=== PATIENT | female | born 1985 | race Caucasian/White ===

== ENCOUNTER 2016-06-27 15:45 | Inpatient (IN) ==
[2016-06-27] MEDS ORDERED: STADOL IV PRN ×2 (15:54)
[2016-06-27] MEDS ORDERED: LR 500 ML IV ONE (15:54)
[2016-06-27] MEDS: LR 1,000 ML IV SCH (17:05)
[2016-06-27] MEDS: CYTOTEC PO SCH ×2 (17:15→21:12)
[2016-06-27 17:43] LABS: MANUAL DIFF NEEDED? NO
[2016-06-27 17:44] LABS: BASO% 0.2 % (0.0-0.8); EOS# 0.06 X1000 (0.0-0.7); EOS% 0.6 % (0.0-10.0); HEMOGLOBIN 13.1 g/dL (12.0-16.0); IMM GRAN# 0.03 X1000 (0.0-0.04); IMM GRAN% 0.3 % (0.0-0.5); LYMPH# 1.64 X1000 (1.2-3.4); LYMPH% 16.6 % (20.5-51.1); MCH 32.3 PG (27-31); MCHC 35.4 g/dL (33-37); MCV 91.4 FL (81-99); MONO# 0.62 X1000 (0.11-0.59); MONO% 6.3 % (1.7-9.3); MPV 9.4 FL (7.4-10.4); PLT 273 X1000 (130-400); RBC 4.05 XMIL (4.2-5.4)
[2016-06-27 18:40] LABS: URINE SOURCE VOIDED
[2016-06-27 18:48] LABS: BILIRUBIN URINE NEGATIVE (NEGATIVE); BLOOD URINE NEGATIVE (NEGATIVE); CLARITY CLEAR (CLEAR); COLOR YELLOW; GLUCOSE URINE NEGATIVE (NEGATIVE); LEUKOCYTES URINE TRACE (NEGATIVE); NITRITE URINE NEGATIVE (NEGATIVE); PROTEIN URINE NEGATIVE (NEGATIVE); UROBILINOGEN URINE NORMAL
[2016-06-27] MEDS ORDERED: DEMEROL IV PRN (21:39)
[2016-06-27] MEDS ORDERED: SODIUM CHLORIDE 0.9% INJ PRN (21:39)
[2016-06-27] MEDS ORDERED: PHENERGAN IV PRN (21:39)
[2016-06-28] MEDS: AMBIEN PO PRN ×2 (00:44→22:59)
[2016-06-28] MEDS: CYTOTEC PO SCH ×4 (01:20→18:02)
[2016-06-28] MEDS: LR 1,000 ML IV SCH ×2 (01:21→15:14)
[2016-06-28] MEDS ORDERED: CYTOTEC VAG ONE ×3 (11:15→21:15)
[2016-06-28] MEDS ORDERED: PEPCID PO PRN (13:57)
[2016-06-28] MEDS ORDERED: TYLENOL PO PRN (13:57)
[2016-06-28] MEDS ORDERED: PEPCID IV PRN (13:57)
[2016-06-28] MEDS ORDERED: REGLAN PO ONE (13:57)
[2016-06-28] MEDS ORDERED: PITOCIN 30 UNITS/LR 30 UNITS/500 ML IV.SOLN IV SCH (13:57)
[2016-06-28] MEDS ORDERED: KEFZOL 1 GM/D5W 1 GM/50 ML IVPB IV PRN (13:57)
[2016-06-28] MEDS ORDERED: ZOFRAN IV PRN (13:57)
[2016-06-28] MEDS ORDERED: LR 1,000 ML IV SCH (13:57)
[2016-06-28] MEDS ORDERED: SODIUM CHLORIDE 0.9% INJ SCH (14:00)
[2016-06-29] MEDS ORDERED: BOOSTRIX VACCINE IM ONE (08:34)
[2016-06-29] MEDS ORDERED: HYDROXYZINE PO PRN (08:34)
[2016-06-29] MEDS ORDERED: AMBIEN PO PRN (08:34)
[2016-06-29] MEDS ORDERED: NORCO-10 PO PRN (08:34)
[2016-06-29] MEDS ORDERED: M-M-R II VACCINE SUBQ ONE (08:34)
[2016-06-29] MEDS ORDERED: HYDROXYZINE IM PRN (08:34)
[2016-06-29] MEDS ORDERED: MOTRIN PO PRN (08:34)
[2016-06-29] MEDS ORDERED: PERI MEDS (DERMOPLAST/NUPERCAINAL/TUCKS) MISC PRN (08:34)
[2016-06-29] MEDS ORDERED: NORCO-5 PO PRN (08:34)
[2016-06-29] MEDS ORDERED: PERCOCET-5 PO PRN (08:40)
[2016-06-29] MEDS ORDERED: PERCOCET-10 PO PRN (08:41)
[2016-06-29] MEDS ORDERED: MINERAL OIL TOP PRN (08:42)
[2016-06-29] MEDS ORDERED: PITOCIN IM PRN (08:42)
[2016-06-29] MEDS ORDERED: CYTOTEC PO PRN (08:43)
[2016-06-29] MEDS ORDERED: BENADRYL IV PRN (08:44)
[2016-06-29] MEDS ORDERED: BENADRYL PO PRN (08:44)
--- NOTE | 2016-06-29 10:22 | OPERATIVE NOTE ---
PROCEDURE DATE: 06/29/2016 DATE OF DELIVERY: 06/29/2016. DELIVERING PHYSICIAN: Dr. Antelmo Falcon. TYPE OF DELIVERY: Spontaneous vaginal delivery. ANESTHESIA: IV sedation. FINDINGS: Intact placenta and fetus were delivered. The fetus showed no gross abnormalities. SUMMARY: Rebecca Ayala is a 30-year-old, 3, para 2-0-0-2, at approximately 17 weeks gestation when she was noted to have an intrauterine demise. Her had been uncomplicated. Her blood type is A positive. Antibody screen negative. Hepatitis B surface antigen, HIV were all negative, as was RPR. She was admitted by Dr. Claudio on night and begun on oral Cytotec. We began vaginal Cytotec yesterday afternoon. She had spontaneous rupture of membranes approximately an hour and a half before delivery. When I saw her there was a large amount of blood clots. We had her push, and the placenta and infant delivered spontaneously. There were no genital tears. Blood loss approximately 300 mL. The patient remained in the LDR recovering without difficulty. cc: MD Antelmo Hernandez MD
[2016-06-29 13:15] VITALS: BP 114/54
[2016-06-29] MEDS ORDERED: PERICOLACE PO SCH (21:00)
== END 2016-06-29 14:35 | disposition home or self-care (01) ==
LOC: P.LD 15:45
PROVIDERS: ADMIT Obstetrics & Gynecology; ATTEND Obstetrics & Gynecology